=== PATIENT | male | born 1960 | race Caucasian/White ===

== ENCOUNTER 2019-08-30 00:33 | Inpatient (IN) | payer BC, OTHER ==
[~2019-08-30] VITALS: Ht 193 cm; Wt 116.2 kg
[2019-08-30 03:01] LABS: Basophils # (auto) 0.1 10 ^3/uL (0-0.2); Basophils % (auto) 1.6 % (0.0-2.0); Eosinophils # (auto) 0.1 10 ^3/uL (0-0.8); Eosinophils % (auto) 2.1 % (0.0-7.0); Hematocrit 43.2 % (41.0-53.0); Hemoglobin 15.1 g/dL (13.5-17.5); Lymphocytes % (auto) 17.3 % (10.0-50.0); Mean Corpuscular Hemoglobin 28.3 pg (28.0-32.0); Mean Corpuscular Hgb Conc. 34.8 g/dL (32.0-36.0); Mean Corpuscular Volume 81.3 fL (80.0-100.0); Monocytes # (auto) 0.5 10 ^3/uL (0-1.3); Monocytes % (auto) 7.9 % (0.0-12.0); Neutrophils # (auto) 4.1 10 ^3/uL (1.6-8.6); Neutrophils % (auto) 71.1 % (37.0-80.0); Platelet Count (auto) 156 10^3/uL (140-450); Red Blood Cells 5.32 10^6/uL (4.5-5.90); Red Cell Distribution Width 13.9 % (11.8-14.3); White Blood Cell 5.7 10^3/uL (4.4-10.8)
[2019-08-30 03:21] LABS: Albumin 3.8 g/dL (3.4-5.0)
[2019-08-30 03:25] LABS: BUN/Creatinine Ratio 16.1; Bilirubin, Total 0.4 mg/dL (0.2-1.0); Total Protein 7.9 g/dL (6.4-8.2)
[2019-08-30] MEDS ORDERED: NIFEdipine 10 MG CAP PO ONE (05:15)
[2019-08-30] MEDS ORDERED: CLOPIDOGREL BISULFATE 75 MG TAB PO ONE (05:15)
[2019-08-30] MEDS ORDERED: ASPirin-EC 325mg tab PO ONE (05:15)
[2019-08-30] MEDS ORDERED: ATORVASTATIN 20 MG TAB PO ONE (05:15)
[2019-08-30] MEDS ORDERED: ONDANSETRON HCL 4 MG/2 ML VIAL IV PRN (07:00)
[2019-08-30] MEDS ORDERED: cloNIDine HCL 0.1 MG TAB PO PRN (07:00)
[2019-08-30] MEDS ORDERED: ACETAMINOPHEN 325 MG TAB PO PRN (07:00)
[2019-08-30] MEDS: FAMOTIDINE 20 MG TAB PO SCH ×2 (08:12→21:57)
[2019-08-30] MEDS: amLODIPine BESYLATE 5 MG TAB PO SCH (08:12)
[2019-08-30] MEDS: ENOXAPARIN SOD 40 MG/0.4 ML SYRINGE SC SCH (08:12)
[2019-08-30 12:46] VITALS: BP 152/79
[2019-08-30 13:00] VITALS: BP 152/79
[2019-08-30 13:13] LABS: Cholesterol 164 mg/dL (< 200); HDL Cholesterol 32 mg/dL (40-59); LDL Cholesterol 114 mg/dL (< 100); Triglycerides 190 mg/dL (< 150)
[2019-08-30 17:25] VITALS: BP 140/71
[2019-08-30] MEDS: ATORVASTATIN 20 MG TAB PO SCH (21:57)
[2019-08-30] MEDS: TEMAZEPAM 15 MG CAP PO PRN (21:57)
[2019-08-30 22:00] VITALS: BP 149/94
[2019-08-31 05:00] VITALS: BP 130/79
[2019-08-31 07:22] LABS: Basophils # (auto) 0 10 ^3/uL (0-0.2); Basophils % (auto) 0.7 % (0.0-2.0); Eosinophils # (auto) 0.2 10 ^3/uL (0-0.8); Hematocrit 44.1 % (41.0-53.0); Lymphocytes # (auto) 1.6 10 ^3/uL (0.4-5.4); Lymphocytes % (auto) 29.3 % (10.0-50.0); Mean Corpuscular Hemoglobin 27.8 pg (28.0-32.0); Mean Corpuscular Hgb Conc. 33.9 g/dL (32.0-36.0); Mean Corpuscular Volume 81.8 fL (80.0-100.0); Monocytes # (auto) 0.6 10 ^3/uL (0-1.3); Monocytes % (auto) 10.1 % (0.0-12.0); Neutrophils # (auto) 3.2 10 ^3/uL (1.6-8.6); Neutrophils % (auto) 56.9 % (37.0-80.0); Nucleated Red Blood Cells % 0.8 %; Platelet Count (auto) 149 10^3/uL (140-450); Red Cell Distribution Width 14.2 % (11.8-14.3); White Blood Cell 5.6 10^3/uL (4.4-10.8)
[2019-08-31 07:31] LABS: BUN/Creatinine Ratio 14.4; Calcium 8.4 mg/dL (8.5-10.1); Potassium 3.8 mmol/L (3.5-5.1)
[2019-08-31 09:00] VITALS: BP 150/96
[2019-08-31] MEDS ORDERED: ASPirin 81 mg TAB PO SCH (10:00)
[2019-08-31] MEDS: FAMOTIDINE 20 MG TAB PO SCH ×2 (10:07→21:39)
[2019-08-31] MEDS: amLODIPine BESYLATE 5 MG TAB PO SCH (10:07)
[2019-08-31] MEDS: ENOXAPARIN SOD 40 MG/0.4 ML SYRINGE SC SCH (10:07)
[2019-08-31] MEDS: METOPROLOL TARTRATE 50 MG TAB PO SCH ×2 (10:09→21:40)
[2019-08-31 13:00] VITALS: BP 134/80
[2019-08-31 17:19] VITALS: BP 146/90
[2019-08-31] MEDS: ATORVASTATIN 20 MG TAB PO SCH (21:41)
[2019-08-31] MEDS: TEMAZEPAM 15 MG CAP PO PRN (21:44)
[2019-08-31 22:00] VITALS: BP 141/82
[2019-08-31] MEDS ORDERED: ATORVASTATIN 20 MG TAB PO SCH (22:00)
[2019-09-01 04:55] VITALS: BP 125/80
[2019-09-01 08:30] VITALS: BP 124/67
[2019-09-01] MEDS: FAMOTIDINE 20 MG TAB PO SCH (09:30)
[2019-09-01] MEDS: METOPROLOL TARTRATE 50 MG TAB PO SCH (09:31)
[2019-09-01] MEDS: ENOXAPARIN SOD 40 MG/0.4 ML SYRINGE SC SCH (09:31)
[2019-09-01] MEDS: amLODIPine BESYLATE 5 MG TAB PO SCH (09:31)
[2019-09-01] MEDS ORDERED: ASPirin-EC 81 mg tab PO SCH (10:00)
[2019-09-01 11:08] VITALS: BP 125/63
[2019-09-01 13:19] VITALS: BP 145/90
== END 2019-09-01 13:20 | disposition home or self-care (01) | DRG 92 ==
LOC: ER 00:37 → EDBD 00:37 → TELE 00:38 → CENTRAL 11:38
PROVIDERS: ADMIT Nurse Practitioner; ATTEND Family Medicine
DX: R20.0 Anesthesia of skin (principal); G45.9 Transient cerebral ischemic attack, unspecified; H35.82 Retinal ischemia; I10 Essential (primary) hypertension; E66.9 Obesity, unspecified; E78.5 Hyperlipidemia, unspecified; R53.1 Weakness; H53.8 Other visual disturbances; Z03.818 Encounter for observation for suspected exposure to other biological agents ruled out; Z91.19 Patient's noncompliance with other medical treatment and regimen
CPT/HCPCS: 36415; 70450; 70551; 80048; 80053; 80061; 85025; 93005; 93306; 93886; G0378